=== PATIENT | female | born 1955 | race Caucasian/White ===

== ENCOUNTER 2017-08-27 11:10 | Outpatient (CLI) | payer OTHER ==
[2015-03-27 14:48] VITALS: BP 133/77
== END 2017-08-27 11:11 ==
LOC: POD 11:10
PROVIDERS: ATTEND Podiatrist Public Medicine
DX: M79.672 Pain in left foot (principal); M76.822 Posterior tibial tendinitis, left leg
CPT/HCPCS: 99213

== ENCOUNTER 2017-10-30 11:57 | Outpatient (CLI) | payer OTHER ==
[2015-03-27 14:48] VITALS: BP 133/77
[2017-10-30 13:04] LABS: APPEARANCE,URINE Y (CLEAR); COLOR,URINE C (YELLOW); OCCULT BLOOD,URINE TRACE-INTACT (NEGATIVE); PH URINE 5.5 (5.0 - 8.0); UROBILINOGEN URINE 0.2 Eu (0.2-1.0)
== END 2017-10-30 12:00 ==
LOC: LAB 11:57
PROVIDERS: ATTEND Family Medicine
DX: R80.9 Proteinuria, unspecified (principal)
CPT/HCPCS: 81002